=== PATIENT | male | born 1955 | race Caucasian/White ===

== ENCOUNTER 2018-04-27 12:20 | Emergency (ER) | payer OTHER ==
[~2018-04-27] VITALS: Ht 188 cm; Wt 145.2 kg
[~2018-04-27 12:20] MED LIST: ALPR1 PO; LISI20 PO; LORA1 PO; METF500; METF500 PO; METO50ER PO; NAPR550 PO; OXYACE5T PO; WARF4 PO; [UNRECOGNIZED DRUG - REMARK]
[2018-04-27 12:51] LABS: BASOPHILS ABSOLUTE AUTO 0.07 K/mm3 (0.00-0.23); BASOPHILS PERCENT AUTO 1 % (0-2); EOSINOPHILS ABSOLUTE AUTO 0.22 K/mm3 (0.00-0.68); EOSINOPHILS PERCENT AUTO 2 % (0-6); Hematocrit 51.3 % (37.0-53.0); Hemoglobin 17.7 g/dL (13.5-17.5); IMMATURE GRAN ABSOLUTE AUTO 0.07 K/mm3 (0.00-0.10); IMMATURE GRAN PERCENT AUTO 1 % (0-1); LYMPHOCYTES ABSOLUTE AUTO 3.72 K/mm3 (0.84-5.20); LYMPHOCYTES PERCENT AUTO 31 % (21-46); MONOCYTES ABSOLUTE AUTO 1.11 K/mm3 (0.16-1.47); MONOCYTES PERCENT AUTO 9 % (4-13); Mean Corpuscular HGB 30.9 pg (26.0-34.0); Mean Corpuscular HGB Conc 34.5 g/dL (31.5-36.5); Mean Corpuscular Volume 90 fL (80-100); Mean Platelet Volume 10.1 fL (9.1-12.4); NEUTROPHILS PERCENT AUTO 57 % (41-73); Platelet Count 193 K/mm3 (150-400); RDW Coefficient Variation 13.6 % (11.7-14.2); RDW Standard Deviation 45.1 fL (35.1-46.3); Red Blood Cell Count 5.72 M/mm3 (4.30-5.90); White Blood Cell Count 12.19 K/mm3 (4.00-11.30)
[2018-04-27 13:07] LABS: Alanine Aminotransfer (ALT/SGP 49 U/L (12-78); Albumin, Blood 3.2 g/dL (3.4-5.0); Albumin/Globulin Ratio 0.8 (0.8-1.8); Alk Phos 87 U/L (50-136); Anion Gap 5 mmol/L (6-16); Aspartate Aminotrans (AST/SGOT 25 U/L (12-37); Bilirubin, Total 0.7 mg/dL (0.1-1.0); Blood Urea Nitrogen 13 mg/dL (8-24); Bun/Creatinine Ratio 18.9 (12.0-20.0); CO2, Blood 27 mmol/L (21-32); Calcium, Blood 8.9 mg/dL (8.5-10.1); Chloride, Blood 104 mmol/L (98-108); Creatinine, Blood 0.69 mg/dL (0.60-1.20); Globulin, Blood 3.9 g/dL (2.2-4.0); Glomerular Filtration Rate >60 (60-); Glucose, Blood 307 mg/dL (70-99); Potassium, Blood 4.1 mmol/L (3.5-5.5); Sodium, Blood 136 mmol/L (136-145); Total Protein, Blood 7.1 g/dL (6.4-8.2)
[2018-04-27 14:26] LABS: International Normalized Ratio 2.69; Prothrombin Time Results 26.2 Sec (9.7-11.5)
[2018-04-27] MEDS ORDERED: Pepcid40 MG PO (14:38)
[2018-04-27] MEDS ORDERED: OMEPRAZOLE MAGN20 MG PO (15:01)
== END 2018-04-27 15:07 | disposition home or self-care (01) ==
LOC: ER 12:20
PROVIDERS: Emergency Medicine; Physician Assistant
DX: R10.12 Left upper quadrant pain (principal); I48.91 Unspecified atrial fibrillation; I10 Essential (primary) hypertension; F17.200 Nicotine dependence, unspecified, uncomplicated; Z88.5 Allergy status to narcotic agent; Z79.01 Long term (current) use of anticoagulants; Z79.899 Other long term (current) drug therapy
CPT/HCPCS: 36415; 74177; 80053; 83690; 85025; 85610; 93005; 93010; 99284-25; Q9967

== ENCOUNTER → 2018-08-12 | Outpatient (CLI) | payer OTHER ==
[~2018-08-12] MED LIST changes: +OMEPRAZOLE MAGN20 MG PO; +Pepcid40 MG PO
[2018-08-13 13:22] LABS: Stool Occult Bld Immuno 1 Negative (NEGATIVE)
== END ==
LOC: LAB 08:44 → LAB SHORT 08:44 → EDSTATUS 08-11 10:10 → LAB FUT 08-11 10:10
PROVIDERS: Nurse Practitioner Family
DX: Z12.11 Encounter for screening for malignant neoplasm of colon (principal)
CPT/HCPCS: G0328